=== PATIENT | female | born 1950 | race African-American/Black ===

== ENCOUNTER 2018-05-11 19:52 | Emergency (ER) | payer MEDICARE ==
[~2018-05-11] VITALS: Ht 157.5 cm; Wt 63.5 kg
[~2018-05-11 19:52] MED LIST: ASPI325T8 PO; BEVA25VI IV; CLON0.1T PO; GLIM4TAB2 PO; LIRA0.6P SQ; LISI-130 PO; METF500T16 PO
[2018-05-11] MEDS ORDERED: LABETALOL 20 MG/4 ML DISP.SYRIN. IVP ONE (20:15)
--- NOTE | 2018-05-11 20:38 | PHYS DOC ---
Past Medical History Past Medical History: Diabetes-Type II, High Cholesterol, Hypertension, Stroke Additional Past Medical Histor: MINOR RIGHT SIDE RESIDUAL IN RIGHT HAND Past Surgical History: Cholecystectomy Alcohol Use: None Drug Use: None Adult General Chief Complaint Chief Complaint: SLURRED SPEECH [facility] HPI Patient is a 67 year old female with prior history of strokes presents to the ED with elevated blood pressure. Upon arrival, her blood pressure was 228/97. She states last night her noted that the left side of her face was swollen and she was having some slurred speech. States her blood pressure at the time read 140/75. She denies having had any chest pain, heart palpitations, weakness, dizziness, blurry vision, or headaches. She states her hypertension has previously been well-controlled with medication, however, it has not been as well-controlled over the past 3 to 4 months. She notes that her last stroke was in 2009 and notes that she has some minor residual right-sided weakness. She also endorses occasional paresthesias, primarily upon waking up in the morning. She notes she has also had trouble walking backwards lately. She states she took all of her medications this morning, as prescribed and has been adherent to her low-salt diet. Her amlodipine dose was recently decreased from 10mg to 5mg by her primary care physician. Review of Systems Review of Systems Constitutional: Denies fever or chills Eyes: Denies change in visual acuity, redness, or eye pain HENT: Denies nasal congestion or sore throat Respiratory: Denies cough or shortness of breath Cardiovascular: No additional information not addressed in HPI GI: Denies abdominal pain, nausea, vomiting, bloody stools or diarrhea : Denies dysuria or hematuria Musculoskeletal: Denies back pain or joint pain Integument: Denies rash or skin lesions Neurologic: Notes slight generalized weakness and occasional paresthesias in bilateral arms; Denies headache or sensory changes Complete systems were reviewed and found to be within normal limits, except as documented in this note. Family History Family History Father- hypertension Mother- hypertension Brother- hypertension Sister- hypertension Current Medications Current Medications Current Medications Medications (Trade) Dose Ordered Sig/Kirt Start Time Stop Time Status Last Admin Dose Admin Labetalol HCl (Normodyne Iv Push) 10 mg 1X ONCE 05/11/18 20:15 05/11/18 20:17 DC Allergies Allergies Allergies Coded Allergies Type Severity Reaction Last Updated Verified No Known Drug Allergies 03/12/14 No Physical Exam Physical Exam Constitutional: Well developed, well nourished, no acute distress HENT: Normocephalic, atraumatic, oropharynx moist, no oral exudates, nose normal Eyes: PERRLA, EOMI, conjunctiva normal, no discharge Neck: Normal range of motion, no tenderness, supple, no meningismus Cardiovascular: Heart rate regular rhythm, no murmur Lungs & Thorax: Bilateral breath sounds clear to auscultation Abdomen: Soft, no tenderness Skin: Warm, dry, no erythema, no rash Back: No tenderness, no CVA tenderness. Extremities: No tenderness, ROM intact, no edema. Neurologic: Alert and oriented X 3, CN II-XII grossly intact bilaterally, normal motor function, normal sensory function, no focal deficits noted Psychologic: Affect normal, judgement normal, mood normal Current Patient Data Vital Signs Vital Signs Date Time Temp Pulse Resp B/P (MAP) Pulse Ox O2 Delivery O2 Flow Rate FiO2 05/11/18 20:55 61 161/74 (103) 100 Room Air 05/11/18 19:55 98.7 98.7 Lab Values Laboratory Tests Test 05/11/18 20:00 05/11/18 20:29 05/11/18 20:45 Glucose (Fingerstick) 245 mg/dL (70-99) H White Blood Count 6.9 x10^3/uL (4.0-11.0) Red Blood Count 3.86 x10^6/uL (3.50-5.40) Hemoglobin 11.3 g/dL (12.0-15.5) L Hematocrit 33.9 % (36.0-47.0) L Mean Corpuscular Volume 88 fL (79-100) Mean Corpuscular Hemoglobin 29 pg (25-35) Mean Corpuscular Hemoglobin Concent 34 g/dL (31-37) Red Cell Distribution Width 14.5 % (11.5-14.5) Platelet Count 384 x10^3/uL (140-400) Neutrophils (%) (Auto) 53 % (31-73) Lymphocytes (%) (Auto) 38 % (24-48) Monocytes (%) (Auto) 6 % (0-9) Eosinophils (%) (Auto) 3 % (0-3) Basophils (%) (Auto) 1 % (0-3) Neutrophils # (Auto) 3.7 x10^3uL (1.8-7.7) Lymphocytes # (Auto) 2.6 x10^3/uL (1.0-4.8) Monocytes # (Auto) 0.4 x10^3/uL (0.0-1.1) Eosinophils # (Auto) 0.2 x10^3/uL (0.0-0.7) Basophils # (Auto) 0.1 x10^3/uL (0.0-0.2) Sodium Level 136 mmol/L (136-145) Potassium Level 4.1 mmol/L (3.5-5.1) Chloride Level 98 mmol/L (98-107) Carbon Dioxide Level 29 mmol/L (21-32) Anion Gap 9 (6-14) Blood Urea Nitrogen 11 mg/dL (7-20) Creatinine 0.8 mg/dL (0.6-1.0) Estimated GFR (Cockcroft-Gault) 87.1 BUN/Creatinine Ratio 14 (6-20) Glucose Level 234 mg/dL (70-99) H Calcium Level 10.2 mg/dL (8.5-10.1) H Magnesium Level 1.6 mg/dL (1.8-2.4) L Total Bilirubin 0.2 mg/dL (0.2-1.0) Aspartate Amino Transferase (AST) 15 U/L (15-37) Alanine Aminotransferase (ALT) 20 U/L (14-59) Alkaline Phosphatase 74 U/L (46-116) Creatine Kinase 122 U/L (26-192) Troponin I Quantitative < 0.017 ng/mL (0.000-0.055) Total Protein 7.5 g/dL (6.4-8.2) Albumin 3.5 g/dL (3.4-5.0) Albumin/Globulin Ratio 0.9 (1.0-1.7) L Laboratory Tests 05/11/18 20:29 Laboratory Tests 05/11/18 20:45 EKG EKG @ 19:58, NSR at 72 bpm, no ST elevations and no reciprocal changes Radiology/Procedures Radiology/Procedures [] Course & Med Decision Making Course & Med Decision Making Ms. Jaelyn Benson is a 67 year old female with a prior stroke history who presented to the ED with elevated blood pressure. Upon arrival, her blood pressure was found to be 228/97. Pertinent labs and imaging studies were obtained and reviewed (see chart for details). Blood pressure was subsequently found to be 169/79. She was given 10mg IV labetalol. EKG @ 19:58 showed NSR at [address] elevations/reciprocal changes. Patient advised to call and and make an appointment with her primary care physician in the morning. In the meantime, if necessary, she has been advised to take 0.3mg of clonidine instead of 0.2mg. Patient stable for discharge with outpatient follow-up with PCP. Discussed findings and plan with patient and her , who acknowledge understanding and agreement. Dragon Disclaimer Dragon Disclaimer This electronic medical record was generated, in whole or in part, using a voice recognition dictation system. Departure Departure Impression: Primary Impression: Hypertension Disposition: HOME, SELF-CARE Condition: STABLE Referrals: CURTIS IGNACIO MD (PCP) Patient Instructions: Hypertension Problem Qualifiers Primary Impression: Hypertension Hypertension type: essential hypertension Qualified Codes: I10 - Essential ( primary) hypertension MARIELA ROBERSON DO May 11, 2018 20:38
[2018-05-11 20:44] LABS: BASO # 0.1 x10^3/uL (0.0-0.2); BASO % 1 % (0-3); EOS # 0.2 x10^3/uL (0.0-0.7); EOS % 3 % (0-3); HEMATOCRIT 33.9 % (36.0-47.0); HEMOGLOBIN 11.3 g/dL (12.0-15.5); LYMPH # 2.6 x10^3/uL (1.0-4.8); LYMPH % 38 % (24-48); MEAN CORPUSCULAR HEMOGLOBIN 29 pg (25-35); MEAN CORPUSCULAR HGB CONC 34 g/dL (31-37); MEAN CORPUSCULAR VOLUME 88 fL (79-100); MONO # 0.4 x10^3/uL (0.0-1.1); MONO % 6 % (0-9); NEUT # 3.7 x10^3uL (1.8-7.7); NEUT % 53 % (31-73); PLATELET COUNT 384 x10^3/uL (140-400); RED BLOOD COUNT 3.86 x10^6/uL (3.50-5.40); RED CELL DISTRIBUTION WIDTH 14.5 % (11.5-14.5); WHITE BLOOD COUNT 6.9 x10^3/uL (4.0-11.0)
[2018-05-11 21:13] LABS: CALCIUM 10.2 mg/dL (8.5-10.1); CREATININE 0.8 mg/dL (0.6-1.0); GFR 87.1; POTASSIUM 4.1 mmol/L (3.5-5.1)
[2018-05-11 21:20] LABS: ALBUMIN 3.5 g/dL (3.4-5.0); ALBUMIN/GLOBULIN RATIO 0.9 (1.0-1.7); MAGNESIUM 1.6 mg/dL (1.8-2.4); TOTAL BILIRUBIN 0.2 mg/dL (0.2-1.0); TOTAL PROTEIN 7.5 g/dL (6.4-8.2)
[2018-05-11 21:40] VITALS: BP 157/75
--- NOTE | 2018-05-11 22:36 | EKG ---
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
== END 2018-05-11 21:50 | disposition home or self-care (01) ==
LOC: ER 19:52
DX: I10 Essential (primary) hypertension (principal); R47.81 Slurred speech; E78.00 Pure hypercholesterolemia, unspecified; E11.9 Type 2 diabetes mellitus without complications; Z86.73 Personal history of transient ischemic attack (TIA), and cerebral infarction without residual deficits
CPT/HCPCS: 36415; 80053; 82550; 82962; 83735; 84484; 85025; 93005; 99285-25

== ENCOUNTER 2020-04-03 05:01 | Emergency (ER) | payer MEDICARE ==
[~2020-04-03] VITALS: Ht 157.5 cm; Wt 68.1 kg
[~2020-04-03 05:01] MED LIST changes: -GLIM4TAB2 PO; +GLIM4TAB8 PO
[2020-04-03 05:16] VITALS: BP 194/82
[2020-04-03] MEDS ORDERED: PRED20TA PO (05:23)
[2020-04-03] MEDS ORDERED: DIPH25CA58 PO (05:23)
--- NOTE | 2020-04-03 05:23 | PHYS DOC ---
Past Medical History Past Medical History: Diabetes-Type II, High Cholesterol, Hypertension, Stroke Additional Past Medical Histor: MINOR RIGHT SIDE RESIDUAL IN RIGHT HAND Past Surgical History: Cholecystectomy Additional Past Surgical Histo: CATARACT Smoking Status: Never Smoker Alcohol Use: None Drug Use: None General Adult EDM: Chief Complaint: ITCHING HPI: HPI: Patient is a 69 year old who presents for evaluation from a itchy skin rash that began this morning. Patient denies any inciting events but ate a long t onsil worse last night. Patient denies any trouble breathing, swelling to her throat or trouble swallowing. Patient denies any nausea vomiting or recent illnesses. The rash is described as itchy and not relieved with anything. The rash is localized to her face. Review of Systems: Review of Systems: Constitutional: Denies fever or chills. [] Eyes: Denies change in visual acuity. [] HENT: Denies nasal congestion or sore throat. [] Respiratory: Denies cough or shortness of breath. [] Cardiovascular: Denies chest pain or edema. [] GI: Denies abdominal pain, nausea, vomiting, bloody stools or diarrhea. [] : Denies dysuria. [] Musculoskeletal: Denies back pain or joint pain. [] Integument: Complains of rash Neurologic: Denies headache, focal weakness or sensory changes. [] Endocrine: Denies polyuria or polydipsia. [] Lymphatic: Denies swollen glands. [] Psychiatric: Denies depression or anxiety. [] Heart Score: Risk Factors: Risk Factors: DM, Current or recent (<one month) smoker, HTN, HLP, family history of CAD, obesity. Risk Scores: Score 0 - 3: 2.5% MACE over next 6 weeks - Discharge Home Score 4 - 6: 20.3% MACE over next 6 weeks - Admit for Clinical Observation Score 7 - 10: 72.7% MACE over next 6 weeks - Early Invasive Strategies Allergies: Allergies: Allergies Coded Allergies Type Severity Reaction Last Updated Verified No Known Drug Allergies 03/12/14 No Physical Exam: PE: Constitutional: Well developed, well nourished, no acute distress, non-toxic appearance. [] HENT: Normocephalic, atraumatic, bilateral external ears normal, oropharynx moist, no oral exudates, nose normal. [] No angioedema Eyes: PERRLA, EOMI, conjunctiva normal, no discharge. [] Mild chris-orbital swelling Neck: Normal range of motion, no tenderness, supple, no stridor. [] Cardiovascular:Heart rate regular rhythm, peripheral pulses intact] Lungs & Thorax: Bilateral breath sounds clear no respiratory distress Abdomen: soft, no tenderness, no masses, no pulsatile masses. [] Skin: Warm, dry, rash to the face consistent with hives Back: No tenderness, no CVA tenderness. [] Extremities: No tenderness, no cyanosis, no clubbing, ROM intact, no edema. [] Neurologic: Alert and oriented X 3, normal motor function, normal sensory function, no focal deficits noted. [] Psychologic: Affect normal, judgement normal, mood normal. [] Current Patient Data: Vital Signs: Vital Signs Date Time Temp Pulse Resp B/P (MAP) Pulse Ox O2 Delivery O2 Flow Rate FiO2 04/03/20 05:16 98.5 91 14 194/82 (119) 99 Room Air 98.5 EKG: EKG: [] Radiology/Procedures: Radiology/Procedures: [] Course & Med Decision Making: Course & Med Decision Making Pertinent Labs and Imaging studies reviewed. (See chart for details) [] 69-year-old female presents with a rash to her face that is most likely due to allergic reaction. Patient does have a history of diabetes. Patient will be placed on steroids but has been counseled to watch her blood sugar very closely. No angioedema to the lips or pharynx. Dragon Disclaimer: Deborah Disclaimer: This electronic medical record was generated, in whole or in part, using a voice recognition dictation system. Departure Departure Impression: Primary Impression: Allergic reaction Disposition: 01 HOME, SELF-CARE Condition: STABLE Referrals: CURTIS IGNACIO MD (PCP) 2-3 days Patient Instructions: Hives, Rash Additional Instructions: EMERGENCY DEPARTMENT GENERAL DISCHARGE INSTRUCTIONS THANK YOU for coming to [facility] Emergency Department (ED) today and trusting us with your care. We trust that you had a positive experience in our Emergency Department. If you wish to speak to the department Management you can contact the millinery department manager at . YOUR FOLLOW UP INSTRUCTIONS ARE FOLLOWS: Do you have a private doctor? If you do not have a private doctor, please ask for a resource list of physicians or clinics that may be able to assist you with follow up care. The Emergency Physician has interpreted your x-rays. The X-ray specialist will also review them. If there is a change in the findings you will be notified in 48 hours when at all possible. A lab test or lab culture may have been done, your results will be reviewed and you will be notified if you need a change in treatment. ADDITIONAL INSTRUCTIONS AND INFORMATION Your care today has been supervised by a physician who is specially trained in emergency care. Many problems require more than one evaluation for a complete diagnosis and treatment. We recommend that you schedule your follow up appointment as recommended to ensure complete treatment of your illness or injury. If you are unable to obtain follow up care and continue to have a problem, or if your condition worsens we recommend that you return to the ED. We are not able to safely determine your condition over the phone nor are we able to give sound medical advice over the phone. For these safety reasons, if you call for medical advice we will ask you to come to the ED for further evaluation If you have any questions regarding these discharge instructions please call the ED at . SAFETY INFORMATION In the interest of safety, wellness, and injury prevention; we encourage you to wear your seatbelt, if you smoke; quit smoking, and we encourage your family to use protective helmet for bicycling and other sporting events that present an increased risk for head injury. IF YOUR SYMPTOMS WORSEN OR NEW SYMPTOMS DEVELOP, OR YOU HAVE CONCERNS ABOUT YOUR CONDITION; OR IF YOUR CONDITION WORSENS WHILE YOU ARE WAITING FOR YOUR FOLLOW UP APPOINTMENT; EITHER CONTACT YOUR PRIMARY CARE DOCTOR, THE PHYSICIAN WHOSE NAME AND NUMBER YOU WERE GIVEN, OR RETURN TO THE ED IMMEDIATELY. Scripts Diphenhydramine Hcl (BENADRYL) 25 Mg Capsule 2 CAP PO Q6-8HRS PRN for ITCHING for 30 Days, CAP 0 Refills Prov: SIMI PHOENIX MD 04/03/20 Prednisone (PREDNISONE) 20 Mg Tablet 60 MG PO DAILY for 5 Days, #15 TAB Prov: SIMI PHOENIX MD 04/03/20 Justicifation of Admission Dx: Justifications for Admission: Justification of Admission Dx: N/A SIMI PHOENIX MD Apr 03, 2020 05:23
== END 2020-04-03 05:27 | disposition home or self-care (01) ==
LOC: ER 05:01
DX: T78.40XA Allergy, unspecified, initial encounter (principal); E11.9 Type 2 diabetes mellitus without complications; I10 Essential (primary) hypertension; E78.00 Pure hypercholesterolemia, unspecified; Z86.73 Personal history of transient ischemic attack (TIA), and cerebral infarction without residual deficits
CPT/HCPCS: 99283

== ENCOUNTER 2020-08-26 20:40 | Emergency (ER) | payer MEDICARE, MEDICAID ==
[~2020-08-26] VITALS: Ht 157.5 cm; Wt 63.6 kg
[~2020-08-26 20:40] MED LIST changes: +DIPH25CA58 PO; +PRED20TA PO
--- NOTE | 2020-08-26 23:38 | PHYS DOC ---
Past Medical History Past Medical History: Diabetes-Type II, High Cholesterol, Hypertension, Stroke Additional Past Medical Histor: MINOR RIGHT SIDE RESIDUAL IN RIGHT HAND Past Surgical History: Cholecystectomy Additional Past Surgical Histo: CATARACT Smoking Status: Never Smoker Alcohol Use: None Drug Use: None General Adult EDM: Chief Complaint: HYPOTENSION HPI: HPI: Patient is a 70 year old female presents to the emergency department stating that she was told to come to the emergency department by her friend for an evaluation. She states that around 4:00 this afternoon she felt a little dizzy spell that lasted a couple of hours. Patient states that when she takes her pulse she thought it might have been 48 patient also states "my blood pressure was 54 something like that "patient states all her symptoms have resolved and she feels fine now. Patient denies any chest pain, chest palpitations, shortness of breath, cough, congestion, nasal congestion, skin rashes, fever or chills. Patient denies any other physical symptoms or physical complaints. Patient states that she has no symptoms now. Review of Systems: Review of Systems: 14 body systems of review of systems have been reviewed. See HPI for pertinent positives and negative responses, otherwise all other systems are negative, nonpertinent or noncontributory. Heart Score: Risk Factors: Risk Factors: DM, Current or recent (<one month) smoker, HTN, HLP, family history of CAD, obesity. Risk Scores: Score 0 - 3: 2.5% MACE over next 6 weeks - Discharge Home Score 4 - 6: 20.3% MACE over next 6 weeks - Admit for Clinical Observation Score 7 - 10: 72.7% MACE over next 6 weeks - Early Invasive Strategies Allergies: Allergies: Allergies Coded Allergies Type Severity Reaction Last Updated Verified No Known Drug Allergies 03/12/14 No Physical Exam: PE: Constitutional: Well developed, well nourished, no acute distress, non-toxic appearance. HENT: Normocephalic, atraumatic, bilateral external ears normal, oropharynx moist, no oral exudates, nose normal. Eyes: PERRLA, EOMI, conjunctiva normal, no discharge. Neck: Normal range of motion, no tenderness, supple, no stridor. Cardiovascular:Heart rate regular rhythm, no murmur Lungs & Thorax: Bilateral breath sounds clear to auscultation Abdomen: Bowel sounds normal, soft, no tenderness, no masses, no pulsatile mas ses. Skin: Warm, dry, no erythema, no rash. Back: No tenderness, no CVA tenderness. Extremities: No tenderness, no cyanosis, no clubbing, ROM intact, no edema. Neurologic: Alert and oriented X 3, normal motor function, normal sensory function, no focal deficits noted. Psychologic: Affect normal, judgement normal, mood normal. Current Patient Data: Vital Signs: Vital Signs Date Time Temp Pulse Resp B/P (MAP) Pulse Ox O2 Delivery O2 Flow Rate FiO2 08/26/20 21:40 97.7 54 20 141/60 (87) 98 Room Air 97.7 EKG: EKG: EKG performed at 2258 by ED nursing staff shows sinus bradycardia without other ectopy heart rate 54 bpm, OR interval 0.162, QTc interval 0.430, no acute STEMI, no acute ischemia, no ACS noted, EKG interpreted by ED attending physician Dr. Hyde. Radiology/Procedures: Radiology/Procedures: [] Course & Med Decision Making: Course & Med Decision Making Pertinent Labs and Imaging studies reviewed. (See chart for details) 70-year-old female reports to the emergency department under the recommendation of a friend who is worried about her dizzy spell she had earlier. Patient's physical examination was unremarkable. An EKG was ordered and read negative for acute process by ED attending physician Dr. Hyde. Patient states she did in fact have a dizzy spell earlier but it has resolved since that she feels fine. And set of orthostatic blood pressures was performed and the patient was not orthostatic. Discussed with patient that we could start an IV and draw some labs and look further into possibilities of why she had a dizzy spell several hours ago, patient elected not to do this and felt that she was okay to go home. Patient states she felt a little embarrassed being here and now that she knows that her blood pressure and pulse are fine and her EKG is fine that she can go home and sleep well. Patient was given discharge instructions return to ER precautions and concerns patient gave verbal understanding of these patient had no further questions or concerns and was discharged home without incident. Impression: Dizzy spell Dragon Disclaimer: Dragmirlande Disclaimer: This electronic medical record was generated, in whole or in part, using a voice recognition dictation system. Departure Departure Impression: Primary Impression: Spell of dizziness Disposition: DC HOME SELF CARE/HOMELESS Condition: GOOD Referrals: CURTIS IGNACIO MD (PCP) Patient Instructions: Dizziness Additional Instructions: Please call your doctor tomorrow to let him know about your dizzy spell you had. Return to emergency department for worsening symptoms or other concerns. EMERGENCY DEPARTMENT GENERAL DISCHARGE INSTRUCTIONS Thank you for coming to [facility] Emergency Department (ED) today and trusting us with you care. We trust that you had a positive experience in our Emergency Department. If you wish to speak to the department management, you may call the Director at [phone]. YOUR FOLLOW UP INSTRUCTIONS ARE FOLLOWS: 1. Do you have a private Doctor? If you do not have a private doctor, please ask for a resource list of physicians or clinics that may be able to assist you with follow up care. 2. The Emergency Physicain has interpreted your x-rays. The X-Ray specialist will also review them. If there is a change in the findings, you will be notified in 48 hours when at all possible. 3. A lab test or culture has been done, your results will be reviewed and you will be notified if you need a change in treatment. ADDITIONAL INSTRUCTIONS AND INFORMATION: 1. Your care today has been supervised by a physician who is specially trained in emergency care. Many problems require more than one evaluation for a complete diagnosis and treatment. We recommend that you schedule your follow up appointment as recommended to ensure complete treatment of you illness or injury. If you are unable to obtain follow up care and continue to have a problem, or if your condition worsens, we recommend that you return to the ED. 2. We are not able to safely determine your condition over the phone nor are we able to give sound medical advice over the phone. For these safety reasons, if you call for medical advice we will ask you to come to the ED for further evaluation. 3. If you have any questions regarding these discharge instructions please call the ED at [phone]. SAFETY INFORMATION: In the interest of safety, wellness, and injury prevention; we encourage you to wear your sealbelt, if you smoke; quite smoking, and we encourage family to use a protective helmet for bicycling and other sporting events that present an increased risk for head injury. IF YOUR SYMPTOMS WORSEN OR NEW SYMPTOMS DEVELOP, OR YOU HAVE CONCERNS ABOUT YOUR CONDITION; OR IF YOUR CONDITION WORSENS WHILE YOU ARE WAITING FOR YOUR FOLLOW UP APPOINTMENT; EITHER CONTACT YOUR PRIMARY CARE DOCTOR, THE PHYSICIAN WHOSE NAME AND NUMBER YOU WERE GIVEN, OR RETURN TO THE ED IMMEDIATELY. MARIELA ALFONSO APRN Aug 26, 2020 23:38
[2020-08-26 23:40] VITALS: BP 189/85
--- NOTE | 2020-08-27 11:40 | EKG ---
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
== END 2020-08-26 23:40 | disposition home or self-care (01) ==
LOC: ER 20:40
DX: R42 Dizziness and giddiness (principal); E11.9 Type 2 diabetes mellitus without complications; E78.00 Pure hypercholesterolemia, unspecified; I10 Essential (primary) hypertension; I25.2 Old myocardial infarction; Z90.49 Acquired absence of other specified parts of digestive tract; Z98.890 Other specified postprocedural states
CPT/HCPCS: 93005; 99283